=== PATIENT | female | born 1955 | race Caucasian/White ===

== ENCOUNTER → 2019-02-07 08:34 | Outpatient (CLI) | payer BC, SELFPAY ==
--- NOTE | 2019-02-07 10:15 | BRBX_PTH ---
PATIENT: SRAVANI SELLERS LOC: [facility] U#:[id number] AGE/SX: 70/F ROOM: RE02/07/[address]: Dr. Ayan Fulton MD : [id number] BED: DIS: SPEC #: [id number] RECD: 02/07/19 12:08 STATUS: MAURICIO RUIZ #: [id number] SHAYE: 02/07/19 10:[address]: Ayan Fulton DEPT: SURGICAL PATHOLOGY RECD BY: Carlo Campos ENTERED: 02/07/19 13:42 SP TYPE: BREAST BX OTHR DR: Dr. Lyndon Suarez MD Tissues: Right breast, NOS Procedures: Surgery Specimen Level IV HEADER OPERATION: Right breast stereotactic biopsy PRE-OP DIAGNOSIS: Calcifications right breast posterior 12 o'clock TISSUE SUBMITTED: Right breast core tissue ISCHEMIC TIME: 1 minute FIXATION TIME: 9.5 hours MICROSCOPIC DIAGNOSIS Right breast, stereotactic core biopsy: Hyalinized and calcified microfibroadenoma. No evidence of malignancy. AM:davida 02/08/19 MICROSCOPIC DESCRIPTION Slides are reviewed. GROSS DESCRIPTION Received is one container labeled with the patient's name and not further designated. The specimen consists of multiple irregular fragments of light swift-yellow soft tissue that in aggregate measure 4.5 x 4.5 x 0.2 cm. The specimen is totally submitted in two cassettes. / AM:davida 02/07/19 TC:5 CPT: 78696
--- NOTE | 2019-02-07 10:48 | PCM.OPRPT ---
Report of Operation Date of Procedure: 02/07/19 Pre-Operative Diagnosis: right breast microcalcifications 12:00 position Post-Operative Diagnosis: successful right breast microcalcification biopsy 12:00 position Surgery/Procedure Performed:: right vacuum-assisted core needle biopsy/stereotactic biopsy with specimen radiograph and marker placement environmental services lead: None Type of Anesthesia:: Local Specimen's removed: right breast tissue with microcalcifications Description of Procedure: The patient was brought to the stereotactic suite and informed of the plan course of events. The right breast was positioned in the CC approach on the Fetch It stereotactic table. Mammographic image demonstrated the area of abnormality to be located in the center of the radiograph. Stereotactic images were then obtained which demonstrated good positioning of the abnormality for biopsy with good stroke melba parameters. The breast was cleaned with Betadine area did one percent lidocaine was used to anesthetize the skin and a small stab incision made. An 8-gauge mammotome needle was placed into the pre-fire position. Stereotactic images demonstrated good positioning around the planned biopsy site. Local anesthetic injected deeply in the breast. The needle was deployed. Post deployment images demonstrated good positioning of the planned biopsy site. Multiple vacuum-assisted samples were obtained and [id number] fashion. Specimen radiograph demonstrated micro-calcifications in the sample. A gel marker clip was deployed. Post biopsy images demonstrated good position of the clip relative the biopsy cavity. The breast was removed from compression. Steri-Strips and a dressing applied. Post procedure mammogram images were obtained.
== END ==
PROVIDERS: Family Provider Family Medicine; PCP Family Medicine; Visit Provider Surgery
DX: D24.1 Benign neoplasm of right breast (principal); R92.0 Mammographic microcalcification found on diagnostic imaging of breast; E03.9 Hypothyroidism, unspecified; J45.909 Unspecified asthma, uncomplicated
CPT/HCPCS: 19081; 88305; J7050